=== PATIENT | male | born 2000 | race African-American/Black ===

== ENCOUNTER 2021-05-27 20:21 | Emergency (ER) | payer OTHER ==
[~2021-05-27] VITALS: Ht 190.5 cm; Wt 77.0 kg
[2021-05-27 21:08] LABS: BASO % 0 % (0-3); EOS # 0.1 x10^3/uL (0.0-0.7); EOS % 1 % (0-3); HEMATOCRIT 45.3 % (39.0-53.0); HEMOGLOBIN 15.3 g/dL (13.0-17.5); LYMPH # 4.4 x10^3/uL (1.0-4.8); LYMPH % 48 % (24-48); MEAN CORPUSCULAR HEMOGLOBIN 30 pg (25-35); MEAN CORPUSCULAR HGB CONC 34 g/dL (31-37); MEAN CORPUSCULAR VOLUME 89 fL (79-100); MONO # 0.9 x10^3/uL (0.0-1.1); MONO % 9 % (0-9); NEUT # 3.8 x10^3/uL (1.8-7.7); NEUT % 41 % (31-73); PLATELET COUNT 276 x10^3/uL (140-400); RED BLOOD COUNT 5.11 x10^6/uL (4.30-5.70); RED CELL DISTRIBUTION WIDTH 13.2 % (11.5-14.5); WHITE BLOOD COUNT 9.1 x10^3/uL (4.0-11.0)
--- NOTE | 2021-05-27 21:10 | RAD ---
Single view chest dated 05/27/2021 9:06 PM: COMPARISON: None Clinical Indication: Chest pain. Findings: Single upright portable exam of the chest was performed. Heart size and mediastinal contours are with in normal limits. Lungs are clear. No consolidation or pleural effusion. No pneumothorax. IMPRESSION: No acute radiographic abnormality. Electronically signed by: Billy Barker MD (05/27/2021 9:07 PM) LELA
[2021-05-27 21:24] LABS: CALCIUM 8.9 mg/dL (8.5-10.1); CREATININE 0.9 mg/dL (0.7-1.3); GFR 106.5; POTASSIUM 4.2 mmol/L (3.5-5.1)
[2021-05-27] MEDS ORDERED: ASPIRIN 325 MG TABLET PO ONE (21:30)
[2021-05-27] MEDS ORDERED: ONDANSETRON PF 4 MG/2 ML VIAL. IVP ONE (21:30)
[2021-05-27] MEDS ORDERED: IV NORMAL SALINE 1000ML BAG 1,000 ML IV ONE (21:30)
[2021-05-27 21:31] LABS: ALBUMIN 4.1 g/dL (3.4-5.0); ALBUMIN/GLOBULIN RATIO 1.1 (1.0-1.7); TOTAL BILIRUBIN 0.5 mg/dL (0.2-1.0); TOTAL PROTEIN 7.8 g/dL (6.4-8.2)
[2021-05-27 22:37] LABS: BILIRUBIN,URINE NEGATIVE (NEG); CLARITY,URINE CLOUDY; COLOR,URINE YELLOW
[2021-05-27 22:38] LABS: BARBITURATES NEG (NEG); BENZODIAZEPINES NEG (NEG); CANNABINOIDS NEG (NEG); COCAINE NEG (NEG); METHADONE NEG (NEG); NITRITE,URINE POSITIVE (NEG); OPIATES NEG (NEG); PHENCYCLIDINE NEG (NEG); PROTEIN,URINE NEGATIVE (NEG-TRACE)
[2021-05-27 22:40] LABS: BACTERIA,URINE MANY /HPF (0-FEW); RBC,URINE 0 /HPF (0-2); WBC,URINE >40 /HPF (0-4)
[2021-05-27 22:42] LABS: AMPHETAMINE/METHAMPHETAMINE NEG (NEG)
--- NOTE | 2021-05-27 23:13 | PHYS DOC ---
Past Medical History Past Surgical History: No Surgical History Smoking Status: Never Smoker Alcohol Use: None General Adult EDM: Chief Complaint: MULTIPLE COMPLAINTS HPI: HPI: Patient is a 21 year old male patient who presents to the ED today with multiple complaints. Patient states for the last 1 month he has had episodes of chest pain, vomiting, dizziness and lightheadedness. He states today he just arrived from [place] by air. He states he was at the [employer] market walking around, he states he became dizzy, lightheaded, he threw up and developed slight chest pain. Patient denies any chest pain in the ED. Denies any nausea, vomi ting or lightheadedness. He is in the ED right now with a drink of water. Review of Systems: Review of Systems: Constitutional: Denies fever or chills. [] Eyes: Denies change in visual acuity. [] HENT: Denies nasal congestion or sore throat. [] Respiratory: Denies cough or shortness of breath. [] Cardiovascular: Reports chest pain GI: Reports vomiting episodes. Denies abdominal pain, bloody stools or diarrhea. [] : Denies dysuria. [] Musculoskeletal: Denies back pain or joint pain. [] Integument: Denies rash. [] Neurologic: Reports dizziness, lightheadedness. Denies headache, focal weakness or sensory changes. [] Endocrine: Denies polyuria or polydipsia. [] Lymphatic: Denies swollen glands. [] Psychiatric: Denies depression or anxiety. [] Heart Score: C/O Chest Pain: N/A Risk Factors: Risk Factors: DM, Current or recent (<one month) smoker, HTN, HLP, family history of CAD, obesity. Risk Scores: Score 0 - 3: 2.5% MACE over next 6 weeks - Discharge Home Score 4 - 6: 20.3% MACE over next 6 weeks - Admit for Clinical Observation Score 7 - 10: 72.7% MACE over next 6 weeks - Early Invasive Strategies Current Medications: Current Medications Medications (Trade) Dose Ordered Sig/Dmitri Start Time Stop Time Status Last Admin Dose Admin Aspirin (Yashira Aspirin) 325 mg 1X ONCE 05/27/21 21:30 05/27/21 21:31 DC 05/27/21 21:24 325 MG Ondansetron HCl (Zofran) 4 mg 1X ONCE 05/27/21 21:30 05/27/21 21:31 DC 05/27/21 21:24 4 MG Sodium Chloride 1,000 ml @ 1,000 mls/hr 1X ONCE 05/27/21 21:30 05/27/21 22:29 DC 05/27/21 21:23 1,000 MLS/HR Allergies: Allergies: Allergies Coded Allergies Type Severity Reaction Last Updated Verified No Known Drug Allergies 05/27/21 No Physical Exam: PE: Constitutional: Well developed, well nourished, no acute distress, non-toxic appearance. [] HENT: Normocephalic, atraumatic, bilateral external ears normal, oropharynx moist, no oral exudates, nose normal. [] Eyes: PERRLA, EOMI, conjunctiva normal, no discharge. [] Neck: Normal range of motion, no tenderness, supple, no stridor. [] Cardiovascular:Heart rate regular rhythm, no murmur [] Lungs & Thorax: Bilateral breath sounds clear to auscultation [] Abdomen: Bowel sounds normal, soft, no tenderness, no masses, no pulsatile masses. [] Skin: Warm, dry, no erythema, no rash. [] Back: No tenderness, no CVA tenderness. [] Extremities: No tenderness, no cyanosis, no clubbing, ROM intact, no edema. [] Neurologic: Alert and oriented X 3, normal motor function, normal sensory func tion, no focal deficits noted. Cranial nerves II through XII intact Psychologic: Affect normal, judgement normal, mood normal. [] Current Patient Data: Labs: Laboratory Tests Test 05/27/21 20:56 05/27/21 22:23 White Blood Count 9.1 x10^3/uL (4.0-11.0) Red Blood Count 5.11 x10^6/uL (4.30-5.70) Hemoglobin 15.3 g/dL (13.0-17.5) Hematocrit 45.3 % (39.0-53.0) Mean Corpuscular Volume 89 fL (79-100) Mean Corpuscular Hemoglobin 30 pg (25-35) Mean Corpuscular Hemoglobin Concent 34 g/dL (31-37) Red Cell Distribution Width 13.2 % (11.5-14.5) Platelet Count 276 x10^3/uL (140-400) Neutrophils (%) (Auto) 41 % (31-73) Lymphocytes (%) (Auto) 48 % (24-48) Monocytes (%) (Auto) 9 % (0-9) Eosinophils (%) (Auto) 1 % (0-3) Basophils (%) (Auto) 0 % (0-3) Neutrophils # (Auto) 3.8 x10^3/uL (1.8-7.7) Lymphocytes # (Auto) 4.4 x10^3/uL (1.0-4.8) Monocytes # (Auto) 0.9 x10^3/uL (0.0-1.1) Eosinophils # (Auto) 0.1 x10^3/uL (0.0-0.7) Basophils # (Auto) 0.0 x10^3/uL (0.0-0.2) D-Dimer (Kylie) < 0.27 ug/mlFEU Sodium Level 140 mmol/L (136-145) Potassium Level 4.2 mmol/L (3.5-5.1) Chloride Level 102 mmol/L (98-107) Carbon Dioxide Level 29 mmol/L (21-32) Anion Gap 9 (6-14) Blood Urea Nitrogen 11 mg/dL (8-26) Creatinine 0.9 mg/dL (0.7-1.3) Estimated GFR (Cockcroft-Gault) 106.5 BUN/Creatinine Ratio 12 (6-20) Glucose Level 83 mg/dL (70-99) Calcium Level 8.9 mg/dL (8.5-10.1) Magnesium Level 2.0 mg/dL (1.8-2.4) Total Bilirubin 0.5 mg/dL (0.2-1.0) Aspartate Amino Transferase (AST) 18 U/L (15-37) Alanine Aminotransferase (ALT) 28 U/L (16-63) Alkaline Phosphatase 82 U/L (46-116) Troponin I High Sensitivity 6 ng/L (4-75) PO-Ydg-V-Type Natriuretic Peptide 32 pg/mL (0-124) Total Protein 7.8 g/dL (6.4-8.2) Albumin 4.1 g/dL (3.4-5.0) Albumin/Globulin Ratio 1.1 (1.0-1.7) Lipase 98 U/L (73-393) Thyroid Stimulating Hormone (TSH) 1.301 uIU/mL (0.358-3.74) Urine Collection Type Unknown Urine Color Yellow Urine Clarity Cloudy Urine pH 7.0 (<5.0-8.0) Urine Specific [place] 1.025 (1.000-1.030) Urine Protein Negative mg/dL (NEG-TRACE) Urine Glucose (UA) Negative mg/dL (NEG) Urine Ketones (Stick) Negative mg/dL (NEG) Urine Blood Negative (NEG) Urine Nitrite Positive (NEG) Urine Bilirubin Negative (NEG) Urine Urobilinogen Dipstick 1.0 mg/dL (0.2 mg/dL) Urine Leukocyte Esterase Small (NEG) Urine RBC 0 /HPF (0-2) Urine WBC >40 /HPF (0-4) Urine Squamous Epithelial Cells Mod /LPF Urine Bacteria Many /HPF (0-FEW) Urine Mucus Slight /LPF Urine Opiates Screen Neg (NEG) Urine Methadone Screen Neg (NEG) Urine Barbiturates Neg (NEG) Urine Phencyclidine Screen Neg (NEG) Urine Amphetamine/Methamphetamine Neg (NEG) Urine Benzodiazepines Screen Neg (NEG) Urine Cocaine Screen Neg (NEG) Urine Cannabinoids Screen Neg (NEG) Urine Ethyl Alcohol Neg (NEG) Laboratory Tests 05/27/21 20:56 Laboratory Tests 05/27/21 20:56 Vital Signs: Vital Signs Date Time Temp Pulse Resp B/P (MAP) Pulse Ox O2 Delivery O2 Flow Rate FiO2 05/27/21 20:25 98.6 78 16 131/61 (84) 100 Room Air 98.6 EKG: EK interpreted by Dr. Nickerson sinus rhythm heart rate 74 no STEMI [] Radiology/Procedures: Radiology/Procedures: []PROCEDURE: PORTABLE CHEST 1V Single view chest dated 05/27/2021 9:06 PM: COMPARISON: None Clinical Indication: Chest pain. Findings: Single upright portable exam of the chest was performed. Heart size and mediastinal contours are within normal limits. Lungs are clear. No consolidation or pleural effusion. No pneumothorax. IMPRESSION: No acute radiographic abnormality. Electronically signed by: Billy Barker MD (05/27/2021 9:07 PM) [facility] [place] DICTATED and SIGNED BY: BILLY BARKER MD DATE: 05/27/21 [id number] 0 Course & Med Decision Making: Course & Med Decision Making Pertinent Labs and Imaging studies reviewed. (See chart for details) This a 21-year-old male patient presenting to the ED today with multiple complaints including dizziness, lightheadedness, chest pain, vomiting, symptoms intermittently for 1 month. Today he flew from [place] and experienced the symptoms. EKG is negative, high-sensitivity troponin is negative, D-dimer less than 0.27, CBC, CMP are completely normal. Urine analysis positive for nitrites, greater than 40 WBCs, squamous cells epithelium. Urine was sent to lab for STDs. Patient admits to multiple female partners. Consulted with Dr. Nickerson. Patient was given Rocephin, Levaquin, and doxycycline in the ED. Discharged with doxycycline, and Levaquin. STD education emphasized. Provided return precautions. Jammie Disclaimer: Jammie Disclaimer: This electronic medical record was generated, in whole or in part, using a voice recognition dictation system. Departure Departure Impression: Primary Impression: Nausea & vomiting Qualified Codes: R11.2 - Nausea with vomiting, unspecified Additional Impressions: Chest pain Qualified Codes: R07.9 - Chest pain, unspecified Dizziness Lightheaded UTI (urinary tract infection) Qualified Codes: N39.0 - Urinary tract infection, site not specified Concern about STD in male without diagnosis Disposition: 01 HOME / SELF CARE / HOMELESS Condition: STABLE Referrals: NO PCP (PCP) follow up with your doctor in one week Patient Instructions: Chest Pain (Nonspecific), Dizziness, [id number], Nausea and Vomiting, [id number] Additional Instructions: You were evaluated in the emergency room, your cardiac work-up is negative for any acute findings. Your urine was noted to have quite a bit of infection raising concern for sexually transmitted diseases. Please take the antibiotics was sent to the pharmacy until completed. Please do not have any intercourse for 2 weeks, after that use protection. Please contact all your sex partners, let them know you were treated for STDs and have them seek treatment right away. Scripts Levofloxacin (LEVOFLOXACIN) 500 Mg Tablet 1 TAB PO DAILY, #7 TAB Prov: KWAKU HAIR ENGRAVING SUPERVISOR 05/27/21 Doxycycline Hyclate (DOXYCYCLINE HYCLATE) 100 Mg Tablet 1 TAB PO BID, #14 TAB Prov: KWAKU HA[employer] ENGRAVING SUPERVISOR 05/27/21 KWAKU HAIR ENGRAVING SUPERVISOR May 27, 2021 23:13
[2021-05-27 23:30] VITALS: BP 131/79
[2021-05-27] MEDS ORDERED: DOXY100T PO (23:35)
[2021-05-27] MEDS ORDERED: LEVO500T9 PO (23:35)
[2021-05-27] MEDS ORDERED: DOXYCYCLINE HYCLATE 100 MG TABLET PO ONE (23:45)
[2021-05-27] MEDS ORDERED: cefTRIAXone IV Push 1 GM VIAL. IVP ONE (23:45)
--- NOTE | 2021-05-28 05:12 | EKG ---
[facility] [address] [place] [address] Test Date: 2021-05-27 Test Time: 20:33:43 Pat Name: PRIYA MUNOZ Department: Room: Gender: M Blanker Operator: : [id number] Requested By: KWAKU HAIR Order Number: [id number] Reading MD: Jv Moreland MD Measurements Intervals [place] Rate: 74 P: 49 [place]: 166 QRS: 34 QRSD: 94 T: 44 QT: 354 QTc: 393 Interpretive Statements SINUS RHYTHM Electronically Signed On 05-28-2021 10:56:53 INFORMATION TECHNOLOGY TECHNICIAN by Jv Moreland MD
== END 2021-05-27 23:56 | disposition home or self-care (01) ==
LOC: ER 20:21
DX: N39.0 Urinary tract infection, site not specified (principal); R07.89 Other chest pain; R42 Dizziness and giddiness; R11.2 Nausea with vomiting, unspecified; Z20.2 Contact with and (suspected) exposure to infections with a predominantly sexual mode of transmission
CPT/HCPCS: 36415; 71045; 80053; 80307; 81001; 83690; 83735; 83880; 84443; 84484; 85025; 85379; 87077; 87086; 87491; 87591; 93005; 96361; 96374; 96375; 99285; J0696; J2405; J7030